=== PATIENT | female | born 1960 | race Caucasian/White ===

== ENCOUNTER 2024-12-30 04:59 | Emergency (ER) | payer BC, MEDICARE ==
[2024-12-30] MEDS ORDERED: SODIUM CHLORIDE 0.9% 1,000 ML IV ONE (05:20)
[2024-12-30] MEDS ORDERED: diphenhydrAMINE hydrochloride 50 MG/ML VIAL IV ONE (05:20)
[2024-12-30] MEDS ORDERED: Ondansetron Hydrochloride 4 MG/2 ML VIAL IV ONE (05:20)
[2024-12-30] MEDS ORDERED: Ketorolac Tromethamine 30 MG/ML VIAL IV ONE (06:10)
[2024-12-30] MEDS ORDERED: REGLAN10 M1 PO (07:24)
== END 2024-12-30 07:29 | disposition home or self-care (01) ==
LOC: ED 04:59
DX: G43.909 Migraine, unspecified, not intractable, without status migrainosus (principal); I10 Essential (primary) hypertension